=== PATIENT | female | born 1995 | race American Indian/Alaskan Native ===

== ENCOUNTER 2017-05-09 10:21 | Emergency (ER) | payer OTHER ==
--- NOTE | 2017-05-09 11:05 | Emergency Department Report ---
Chief Complaint: Abdominal Pain Stated Complaint: PELVIC PAIN Time Seen by Provider: 05/09/17 10:57 - HPI History of Present Illness: 21-year-old denies nausea vomiting here for evaluation of lower abdominal pain intermittent cramping question of dysuria. Not sure if she is having a little bit of vaginal spotting versus blood in the urine no missed periods last menstrual period 2 weeks ago. No fever crampy intermittent lower abdominal pain. - ROS Review of Systems: Review of systems otherwise negative - Exam Vital Signs: Vital Signs 05/09/17 10:49 Temperature 98.2 F Pulse Rate 58 L Respiratory 18 Rate Blood Pressure 120/82 O2 Sat by Pulse 100 Oximetry Physical Exam: Vital signs stable afebrile alert and oriented 3 nontoxic. Abdomen soft question of mild lower abdominal tenderness without rebound or guarding no mass. MSE screening note: Focused history and physical exam performed. Due to findings the following was ordered: Laboratory studies ordered patient transferred to the main ED for further evaluation. ED Disposition for MSE Condition: Stable Instructions: Abdominal Pain (ED)
[2017-05-09 11:15] LABS: Bilirubin,Urine NEG (Negative); Blood,Urine NEG (Negative); Ketones,Urine NEG (Negative); Leukocyte Esterase,Urine SM (Negative); Mucus,Urine FEW /HPF; Nitrite,Urine NEG (Negative); Protein,Urine <15 mg/dL mg/dL (Negative)
[2017-05-09 11:29] LABS: Basophils % (Auto) 0.4 % (0.0-1.8); Eosinophils % (Auto) 0.8 % (0.0-4.3); Hematocrit 36.5 % (30.3-42.9); Hemoglobin 11.5 gm/dl (10.1-14.3); Mean Corpuscular HGB Conc 32 % (30-34); Mean Corpuscular Hemoglobin 27 pg (28-32); Mean Corpuscular Volume 86 fl (79-97); Platelet Count 254 K/mm3 (140-440); Red Blood Count 4.27 M/mm3 (3.65-5.03); Red Cell Distribution Width 16.5 % (13.2-15.2); White Blood Count 6.4 K/mm3 (4.5-11.0)
[2017-05-09 11:52] LABS: Alanine Aminotransferase 7 units/L (7-56); Albumin/Globulin Ratio 1.4 %; Alkaline Phosphatase 47 units/L (35-129); Anion Gap 17 mmol/L; BUN/Creatinine Ratio 13; Blood Urea Nitrogen 9 mg/dL (7-17); Calcium 8.9 mg/dL (8.4-10.2); Carbon Dioxide 25 mmol/L (22-30); Chloride 102.3 mmol/L (98-107); Glucose 78 mg/dL (65-100); Lipase 18 units/L (13-60); Potassium 4.1 mmol/L (3.6-5.0); Sodium 140 mmol/L (137-145); Total Protein 6.9 g/dL (6.3-8.2)
[2017-05-09 11:58] LABS: Bilirubin,Direct < 0.2 mg/dL (0-0.2)
[2017-05-09] MEDS ORDERED: MOTRIN PO ONE (13:19)
[2017-05-09] MEDS ORDERED: LEVAQUIN PO ONE (13:19)
--- NOTE | 2017-05-09 13:19 | Emergency Department Report ---
ED General Adult HPI - General Chief complaint: Abdominal Pain Stated complaint: PELVIC PAIN Time Seen by Provider: 05/09/17 10:57 Source: patient Mode of arrival: Ambulatory Limitations: No Limitations - History of Present Illness Initial comments: Patient complains of dysuria and frequent urination. She's had some suprapubic discomfort but it is mild. She does not report vaginal bleeding or discharge. She denies fever chills nausea vomiting or back pain. -: days(s) Location: abdomen Radiation: non-radiation Severity scale (0 -10): 2 Quality: aching Consistency: now resolved Improves with: none Worsens with: none Associated Symptoms: denies other symptoms - Related Data Previous Rx's Medication Instructions Recorded Last Taken Type HYDROcodone/APAP 5-325 [[place] 1 each PO Q6HR PRN #20 tablet 02/28/15 Unknown Rx 5-325 mg TAB] Ibuprofen [Motrin 800 MG tab] 800 mg PO Q8HR PRN #30 tablet 02/28/15 Unknown Rx Albuterol Sulfate [Ventolin HFA] 2 puff IH Q4H PRN #1 hfa.aer.ad 08/01/15 Unknown Rx Loratadine [Claritin] 10 mg PO DAILY #30 tablet 08/01/15 Unknown Rx Tobramycin 0.3% [Tobrex] 1 drop OTIC Q8HR #1 bottle 11/12/15 11/15/15 07:00 Rx 1 drop Ibuprofen [Motrin] 600 mg PO Q8H PRN #15 tablet 03/18/16 Unknown Rx Oxymetazoline 0.05% [Afrin] 2 spray NS BID PRN #1 bottle 03/18/16 Unknown Rx Naproxen [Naprosyn] 375 mg PO BID PRN #10 tablet 05/09/17 Unknown Rx Nitrofurantoin Monohyd/M-Cryst 100 mg PO BID #14 capsule 05/09/17 Unknown Rx [Macrobid 100 mg Capsule] Allergies Allergy/AdvReac Type Severity Reaction Status Date / Time No Known Allergies Allergy Verified 05/09/17 10:48 ED Review of Systems ROS: Stated complaint: PELVIC PAIN Other details as noted in HPI Constitutional: denies: chills, fever Eyes: denies: eye pain, eye discharge, vision change ENT: denies: ear pain, throat pain Respiratory: denies: cough, shortness of breath, wheezing Cardiovascular: denies: chest pain, palpitations Endocrine: no symptoms reported Gastrointestinal: as per HPI, abdominal pain. denies: nausea, diarrhea Genitourinary: as per HPI, urgency, dysuria, frequency. 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 ANEMIA - Social History Smoking Status: Current Every Day Smoker Substance Use Type: Alcohol - Medications Home Medications: Home Medications Medication Instructions Recorded Confirmed Last Taken Type HYDROcodone/APAP 5-325 [[place] 1 each PO Q6HR PRN #20 tablet 02/28/15 12/17/15 Unknown Rx 5-325 mg TAB] Ibuprofen [Motrin 800 MG tab] 800 mg PO Q8HR PRN #30 tablet 02/28/15 12/17/15 Unknown Rx Albuterol Sulfate [Ventolin HFA] 2 puff IH Q4H PRN #1 hfa.aer.ad 08/01/15 Unknown Rx Loratadine [Claritin] 10 mg PO DAILY #30 tablet 08/01/15 12/17/15 Unknown Rx Tobramycin 0.3% [Tobrex] 1 drop OTIC Q8HR #1 bottle 11/12/15 12/17/15 11/15/15 07:00 Rx 1 drop Ibuprofen [Motrin] 600 mg PO Q8H PRN #15 tablet 03/18/16 Unknown Rx Oxymetazoline 0.05% [Afrin] 2 spray NS BID PRN #1 bottle 03/18/16 Unknown Rx Naproxen [Naprosyn] 375 mg PO BID PRN #10 tablet 05/09/17 Unknown Rx Nitrofurantoin Monohyd/M-Cryst 100 mg PO BID #14 capsule 05/09/17 Unknown Rx [Macrobid 100 mg Capsule] ED Physical Exam - General Limitations: No Limitations General appearance: alert, in no apparent distress, obese - Head Head exam: Present: atraumatic, normocephalic - Eye Eye exam: Present: normal appearance. Absent: scleral icterus - ENT ENT exam: Present: normal exam, mucous membranes moist - Neck Neck exam: Present: normal inspection - Respiratory Respiratory exam: Present: normal lung sounds bilaterally. Absent: respiratory distress - Cardiovascular Cardiovascular Exam: Present: regular rate, normal rhythm. Absent: systolic murmur, diastolic murmur, rubs, gallop - GI/Abdominal GI/Abdominal exam: Present: soft, normal bowel sounds. Absent: distended, tenderness, guarding, rebound, rigid - Extremities Exam Extremities exam: Present: normal inspection - Back Exam Back exam: Present: normal inspection. Absent: CVA tenderness (R), CVA tenderness (L) - Neurological Exam Neurological exam: Present: alert, oriented X3, CN II-XII intact. Absent: motor sensory deficit - Psychiatric Psychiatric exam: Present: normal affect, normal mood - Skin Skin exam: Present: warm, dry, intact, normal color. Absent: rash ED Course Vital Signs 05/09/17 05/09/17 05/09/17 10:49 11:42 11:46 Temperature 98.2 F 98.2 F Pulse Rate 58 L 62 Respiratory 18 14 14 Rate Blood Pressure 120/82 Blood Pressure 113/60 [Right] O2 Sat by Pulse 100 99 99 Oximetry ED Medical Decision Making - Lab Data Result diagrams: 05/09/17 11:16 05/09/17 11:16 Laboratory Results - last 24 hr 05/09/17 05/09/17 05/09/17 11:16 11:16 Unknown WBC 6.4 RBC 4.27 Hgb 11.5 Hct 36.5 MCV 86 MCH 27 L MCHC 32 RDW 16.5 H Plt Count 254 Lymph % (Auto) 26.6 [place] % (Auto) 4.9 Eos % (Auto) 0.8 Baso % (Auto) 0.4 Lymph # 1.7 [place] # 0.3 Eos # 0.1 Baso # 0.0 Seg Neutrophils % 67.3 Seg Neutrophils # 4.3 Sodium 140 Potassium 4.1 Chloride 102.3 Carbon Dioxide 25 Anion Gap 17 BUN 9 Creatinine 0.7 Estimated GFR > 60 BUN/Creatinine Ratio 13 Glucose 78 Calcium 8.9 Total Bilirubin 0.50 Direct Bilirubin < 0.2 AST 13 ALT 7 Alkaline Phosphatase 47 Total Protein 6.9 Albumin 4.0 Albumin/Globulin Ratio 1.4 Lipase 18 Urine Color Yellow Urine Turbidity Clear Urine pH 7.0 Ur Specific [place] 1.023 Urine Protein <15 mg/dl Urine Glucose (UA) Neg Urine Ketones Neg Urine Blood Neg Urine Nitrite Neg Urine Bilirubin Neg Urine Urobilinogen 2.0 Ur Leukocyte Esterase Sm Urine WBC (Auto) 22.0 H Urine RBC (Auto) 10.0 U Epithel Cells (Auto) 2.0 Urine Mucus Few Urine HCG, Qual Negative Critical care attestation.: If time is entered above; I have spent that time in minutes in the direct care of this critically ill patient, excluding procedure time. ED Disposition Clinical Impression: Acute cystitis Qualifiers: Hematuria presence: with hematuria Qualified Code(s): N30.01 - Acute cystitis with hematuria Disposition: TO HOME OR SELFCARE Is pt being admited?: No Does the pt Need Aspirin: No Condition: Stable Instructions: Abdominal Pain (ED), Urinary Tract Infection in Women (ED) Additional Instructions: Follow-up urine culture in 2-3 days at the [facility]. Rx as directed. Return as needed Prescriptions: Naproxen [Naprosyn] 375 mg PO BID PRN #10 tablet PRN Reason: Pain Nitrofurantoin Monohyd/M-Cryst [Macrobid 100 mg Capsule] 100 mg PO BID #14 capsule Referrals: RONNA IBRAHIM MD [Primary Care Provider] - 3-5 Days [facility] [Provider Group] - 3-5 Days Time of Disposition: 13:19
[2017-05-09 13:52] VITALS: BP 113/60
== END 2017-05-09 13:50 | disposition home or self-care (01) ==
LOC: ED 10:21
DX: N30.01 Acute cystitis with hematuria (principal); J45.909 Unspecified asthma, uncomplicated; F17.200 Nicotine dependence, unspecified, uncomplicated; D64.9 Anemia, unspecified
CPT/HCPCS: 36415; 80048; 80074; 81001; 81025; 83690; 85025; 99283

== ENCOUNTER 2019-07-24 08:54 | Emergency (ER) | payer MEDICAID ==
[2019-07-24 09:13] VITALS: BP 137/82
[2019-07-24 13:28] LABS: Hematocrit 35.3 % (30.3-42.9); Hemoglobin 11.4 gm/dl (10.1-14.3); Mean Corpuscular HGB Conc 32 % (30-34); Mean Corpuscular Volume 85 fl (79-97); Platelet Count 314 K/mm3 (140-440); Red Blood Count 4.14 M/mm3 (3.65-5.03); Red Cell Distribution Width 15.2 % (13.2-15.2)
--- NOTE | 2019-07-24 15:31 | Ultrasound Report ---
FIRSTTRIMESTER OBSTETRIC ULTRASOUND ULTRASOUND OB TRANSVAGINAL HISTORY: and pelvic pain COMPARISON: None. TECHNIQUE: Routine transabdominal and transvaginal OB ultrasound performed. FINDINGS: Uterus: Mildly enlarged measuring 9.9 x 5.5 x 7.4 cm. Gestational Sac: Well-defined oval shape and intrauterine in location. Yolk Sac: Normal in appearance. Fetus/Embryo: [place]-rump length of 0.2 cm, corresponding to an estimated gestational age of 5 weeks 5 days. Embryonic/ anatomy is too small for evaluation. Embryonic/ cardiac activity: 98bpm Placenta: Too small for evaluation. Amniotic fluid volume: Subjectively appropriate for gestational age. Ovaries: The right ovary is normal in size and appearance with normal blood flow, measuring 3.8 x 2. 6 x 3.9 cm. The left ovary is normal in size and appearance with normal blood flow, measuring 2.0 x 3.0 x 2.4 cm. Hypoechoic space-occupying mass in the right ovary with peripheral vascularity is most likely the corpus luteum. Additional findings: None. IMPRESSION Early live intrauterine . Signer Name: Drew Quezada Jr, MD Signed: 07/24/2019 3:26 PM Workstation Name: [id number]
--- NOTE | 2019-07-24 16:21 | Emergency Department Report ---
ED Female HPI - General Chief complaint: Abdominal Pain Stated complaint: ABD PAIN, CRAMPING Time Seen by Provider: 07/24/19 12:00 Source: patient Mode of arrival: Ambulatory Limitations: No Limitations - History of Present Illness Complaint: pelvic pain (23-year-old obese Afro-Tristanian female reports emergency department complaining of discovering she is 5 months and having painful cramps across the lower lower lower abdomen with no associated vaginal discharge or vaginal bleeding or urinary frequency. She reports having some flank pain as well answered and she denies trauma. There is no chest pain or palpitation no nausea or vomiting. She denies trauma) Location: suprapubic Severity: moderate Quality: dull Consistency: constant Are you Now?: Yes Associated Symptoms: abdominal pain. denies: vaginal discharge, vaginal bleeding, loss of appetite, dysuria, hematuria, shortness of breath, syncope - Related Data Previous Rx's Medication Instructions Recorded Last Taken Type HYDROcodone/APAP 5-325 [[place] 1 each PO Q6HR PRN #20 tablet 02/28/15 Unknown Rx 5-325 mg TAB] Ibuprofen [Motrin 800 MG tab] 800 mg PO Q8HR PRN #30 tablet 02/28/15 Unknown Rx Albuterol Sulfate [Ventolin HFA] 2 puff IH Q4H PRN #1 hfa.aer.ad 08/01/15 Unknown Rx Loratadine (Nf) [Claritin] 10 mg PO DAILY #30 tablet 08/01/15 Unknown Rx Tobramycin 0.3% [Tobrex] 1 drop OTIC Q8HR #1 bottle 11/12/15 11/15/15 07:00 Rx 1 drop Ibuprofen [Motrin] 600 mg PO Q8H PRN #15 tablet 03/18/16 Unknown Rx Oxymetazoline 0.05% [Afrin] 2 spray NS BID PRN #1 bottle 03/18/16 Unknown Rx Naproxen [Naprosyn] 375 mg PO BID PRN #10 tablet 05/09/17 Unknown Rx Nitrofurantoin Monohyd/M-Cryst 100 mg PO BID #14 capsule 05/09/17 Unknown Rx [Macrobid 100 mg Capsule] Allergies Allergy/AdvReac Type Severity Reaction Status Date / Time No Known Allergies Allergy Verified 05/09/17 10:48 ED Review of Systems ROS: Stated complaint: ABD PAIN, CRAMPING Other details as noted in HPI ED Past Medical Hx - Past Medical History Previous Medical History?: Yes Hx Hypertension: No Hx Heart Attack/AMI: No Hx Congestive Heart Failure: No Hx Diabetes: No Hx Deep Vein Thrombosis: No Hx Renal Disease: No Hx Sickle Cell Disease: No Hx Seizures: No Hx Asthma: Yes (last attack 09/28) Hx COPD: No Hx HIV: No Additional medical history: 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 ANEMIA - Surgical History Past Surgical History?: Yes - Social History Smoking Status: Current Every Day Smoker Substance Use Type: Alcohol - Medications Home Medications: Home Medications Medication Instructions Recorded Confirmed Last Taken Type HYDROcodone/APAP 5-325 [[place] 1 each PO Q6HR PRN #20 tablet 02/28/15 12/17/15 Unknown Rx 5-325 mg TAB] Ibuprofen [Motrin 800 MG tab] 800 mg PO Q8HR PRN #30 tablet 02/28/15 12/17/15 Unknown Rx Albuterol Sulfate [Ventolin HFA] 2 puff IH Q4H PRN #1 hfa.aer.ad 08/01/15 12/17/15 Unknown Rx Loratadine (Nf) [Claritin] 10 mg PO DAILY #30 tablet 08/01/15 12/17/15 Unknown Rx Tobramycin 0.3% [Tobrex] 1 drop OTIC Q8HR #1 bottle 11/12/15 12/17/15 11/15/15 07:00 Rx 1 drop Ibuprofen [Motrin] 600 mg PO Q8H PRN #15 tablet 03/18/16 Unknown Rx Oxymetazoline 0.05% [Afrin] 2 spray NS BID PRN #1 bottle 03/18/16 Unknown Rx Naproxen [Naprosyn] 375 mg PO BID PRN #10 tablet 05/09/17 Unknown Rx Nitrofurantoin Monohyd/M-Cryst 100 mg PO BID #14 capsule 05/09/17 Unknown Rx [Macrobid 100 mg Capsule] ED Physical Exam - General Limitations: No Limitations ED Course Vital Signs 07/24/19 09:11 Temperature 98.8 F Pulse Rate 98 H Respiratory 18 Rate Blood Pressure 137/82 O2 Sat by Pulse 100 Oximetry ED Medical Decision Making - Lab Data Result diagrams: 07/24/19 12:44 Critical care attestation.: If time is entered above; I have spent that time in minutes in the direct care of this critically ill patient, excluding procedure time. ED Disposition Disposition: DC-01 TO HOME OR SELFCARE Condition: Stable Instructions: Abdominal Pain (ED) Additional Instructions: The ultrasound shows a normal early intrauterine . Please be sure to follow-up with your [facility] for reevaluation your your prepregnancy and utilize Tylenol and fluids as needed for pain be sure that you are taking your vitamins as well. Referrals: [facility] [Provider Group] - 3-5 Days
== END 2019-07-24 16:15 | disposition home or self-care (01) ==
LOC: ED 08:54
DX: O26.892 Other specified pregnancy related conditions, second trimester (principal); R25.2 Cramp and spasm; R10.2 Pelvic and perineal pain; J45.909 Unspecified asthma, uncomplicated; D64.9 Anemia, unspecified; F17.200 Nicotine dependence, unspecified, uncomplicated; Z79.899 Other long term (current) drug therapy; Z98.890 Other specified postprocedural states; Z3A.20 20 weeks gestation of pregnancy
CPT/HCPCS: 36415; 76801; 76817; 84702; 85027

== ENCOUNTER 2020-01-26 17:47 | Outpatient (CLI) | payer MEDICAID ==
[2020-01-26] MEDS ORDERED: ACETAMINOPHEN 500 MG TAB PO STA (18:56)
[2020-01-26 19:35] LABS: Bacteria,Urine 1+ /HPF (Negative); Bilirubin,Urine NEG (Negative); Blood,Urine NEG (Negative); Color,Urine Yellow (Yellow); Mucus,Urine 3+ /HPF
[2020-01-26] MEDS ORDERED: LACTATED RINGERS 500 ML IV ONE (19:52)
[2020-01-26 19:58] VITALS: BP 89/50
== END 2020-01-26 20:10 | disposition home or self-care (01) ==
LOC: TRG 17:47 → APU 17:48 → TRG 20:10
PROVIDERS: ATTEND Obstetrics & Gynecology
DX: O26.893 Other specified pregnancy related conditions, third trimester (principal); R51 Headache; Z3A.32 32 weeks gestation of pregnancy
CPT/HCPCS: 59025; 81001

== ENCOUNTER 2020-03-12 08:27 | Inpatient (IN) | payer MEDICAID ==
[2020-03-12] MEDS ORDERED: OXYTOCIN DRIP 30 UNITS/500 ML BAG IV SCH (11:00)
[2020-03-12] MEDS ORDERED: DINOPROSTONE 10 MG VAG SUPP VG SCH (11:00)
[2020-03-12] MEDS ORDERED: AMPICILLIN/NS 2 GM/100 ML 2 GM/100 ML BAG IV SCH (11:00)
[2020-03-12] MEDS: LACTATED RINGERS 1,000 ML IV SCH ×3 (11:12→18:50)
--- NOTE | 2020-03-12 11:21 | History and Physical Report ---
History of Present Illness Date of examination: 03/12/20 Date of admission: 03/12/20 08:27 Chief complaint: Presents for a scheduled induction of labor due to morbid maternal obesity. History of present illness: Late entry to care at 15 1/7 Weeks, co-managed with [facility], course complicated by Anemia, Vitamin D Deficiency, a UTI, and Asthma. Past History Past Medical History: asthma Past Surgical History: no surgical history [facility] [employer] History: abnormal PAP smear, chlamydia, gonorrhea Family/Genetic History: hypertension (Parents) Social history: no significant social history, single, lives with family - Obstetrical History Expected Date of Delivery: 03/19/20 Actual Gestation: 39 Week(s) 0 Day(s) : 3 Para: 2 Number of Living Children: 2 #1 Infant Gender: Male year: ,[birth year] Birthweight: 3.175 kg Method of Delivery: Vaginal Gestational age at delivery: 40 Complications: none #2 Infant Gender: Male year: ,[birth year] Birthweight: 3.827 kg Method of Delivery: Vaginal Gestational age at delivery: 40 Medications and Allergies Allergies Allergy/AdvReac Type Severity Reaction Status Date / Time No Known Allergies Allergy Verified 05/09/17 10:48 Home Medications Medication Instructions Recorded Confirmed Last Taken Type HYDROcodone/APAP 5-325 [[place] 1 each PO Q6HR PRN #20 tablet 02/28/15 12/17/15 Unknown Rx 5-325 mg TAB] Ibuprofen [Motrin 800 MG tab] 800 mg PO Q8HR PRN #30 tablet 02/28/15 12/17/15 Unknown Rx Albuterol Sulfate [Ventolin HFA] 2 puff IH Q4H PRN #1 hfa.aer.ad 08/01/15 12/17/15 Unknown Rx Loratadine (Nf) [Claritin] 10 mg PO DAILY #30 tablet 08/01/15 12/17/15 Unknown Rx Tobramycin 0.3% [Tobrex] 1 drop OTIC Q8HR #1 bottle 11/12/15 12/17/15 11/15/15 07:00 Rx 1 drop Ibuprofen [Motrin] 600 mg PO Q8H PRN #15 tablet 03/18/16 Unknown Rx Oxymetazoline 0.05% [Afrin] 2 spray NS BID PRN #1 bottle 03/18/16 Unknown Rx Naproxen [Naprosyn] 375 mg PO BID PRN #10 tablet 05/09/17 Unknown Rx Nitrofurantoin Monohyd/M-Cryst 100 mg PO BID #14 capsule 05/09/17 Unknown Rx [Macrobid 100 mg Capsule] Active Meds: Active Medications Acetaminophen (Tylenol) 650 mg PO Q4H PRN PRN Reason: Pain, Mild (1-3) Butorphanol Tartrate (Stadol) 2 mg IV Q2H PRN PRN Reason: Pain , Severe (7-10) Dinoprostone (Cervidil) 10 mg VG ONCE BETO Stop: 03/12/20 15:00 Ephedrine Sulfate (Ephedrine Sulfate) 10 mg IV Q2M PRN PRN Reason: Hypotension Oxytocin/Sodium Chloride (Pitocin/Ns 30 Unit/500ml) 30 units in 500 mls @ 2 mls/hr IV TITR BETO; Protocol Lactated Ringer's (Lactated Ringers) 1,000 mls @ 125 mls/hr IV DIRECT BETO Last Admin: 03/12/20 11:12 Dose: 125 mls/hr Documented by: Oxytocin/Sodium Chloride (Pitocin/Ns 30 Unit/500ml) 30 units in 500 mls @ 40 mls/hr IV TITR BETO; Protocol Ampicillin Sodium (Ampicillin/Ns 2 Gm/100 Ml) 2 gm in 100 mls @ 100 mls/hr IV ONCE BETO; Protocol Stop: 03/12/20 14:00 Ampicillin Sodium (Ampicillin/Ns 1 Gm/50 Ml) 1 gm in 50 mls @ 100 mls/hr IV Q4H BETO; Protocol Lidocaine (Xylocaine 2%) 20 ml INFILTRATI ONCE BETO Stop: 03/13/20 11:29 Mineral Oil (Mineral Oil) 30 ml PO QHS PRN PRN Reason: Constipation Misoprostol (Cytotec) 1,000 mcg MI ONCE PRN PRN Reason: Uterine Bleeding Oxytocin (Pitocin) 10 unit IM ONCE PRN PRN Reason: Uterine Bleeding Terbutaline Sulfate (Brethine) 0.25 mg SUB-Q ONCE PRN PRN Reason: Hyperstimulation/Hypertonicity Review of Systems All systems: negative - Vital Signs Vital signs: Vital Signs Temp Pulse 98.2 F 87 03/12/20 10:05 03/12/20 10:05 Temp Pulse Resp BP Pulse Ox 98.2 F 87 03/12/20 10:05 03/12/20 10:05 - Physical Exam Breasts: Positive: normal Cardiovascular: Regular rate Lungs: Positive: Clear to auscultation, Normal air movement Abdomen: Positive: normal appearance, soft, normal bowel sounds Genitourinary (Female): Positive: normal external genitalia, normal perenium Vagina: Positive: normal moisture Uterus: Positive: enlarged Anus/Rectum: Positive: normal perianal skin Extremities: Positive: normal - Obstetrical FHR: category 1 Uterine Contraction Monitor Mode: External Cervical Dilatation: 1 Cervical Effacement Percentage: 20 station: -4 Uterine Contraction Pattern: Irregular Uterine Tone Measurement Phase: Resting Uterine Contraction Intensity: Moderate Results All other labs normal. Assessment and Plan A: IUP @ 39 Weeks Category I Tracing Morbid Maternal Obesity GBS Negative P: Admit to L&D Per Routine Orders PIH Labs Cook's Cervical Ripening Balloon Placed Low-Dose Pitocin Induction GBS Prophylaxis
[2020-03-12] MEDS: OXYTOCIN DRIP 30 UNITS/500 ML BAG IV SCH (11:27)
[2020-03-12] MEDS ORDERED: ePHEDrine SULFATE 50 MG/1 ML INJ IV PRN (11:30)
[2020-03-12] MEDS ORDERED: OXYTOCIN 10 UNIT/1 ML INJ IM PRN (11:30)
[2020-03-12] MEDS ORDERED: LIDOCAINE (2%) 20 MG/1 ML VIAL 20 ML MDV INFILTRATI SCH (11:30)
[2020-03-12] MEDS ORDERED: miSOPROStol 200 MCG TAB PR PRN (11:30)
[2020-03-12] MEDS ORDERED: TERBUTALINE 1 MG/1 ML INJ SUB-Q PRN (11:30)
[2020-03-12] MEDS: ACETAMINOPHEN 325 MG TAB PO PRN (14:01)
[2020-03-12 14:07] LABS: Hematocrit 31.5 % (30.3-42.9); Hemoglobin 10.3 gm/dl (10.1-14.3); Mean Corpuscular HGB Conc 33 % (30-34); Mean Corpuscular Volume 83 fl (79-97); Platelet Count 282 K/mm3 (140-440); Red Blood Count 3.81 M/mm3 (3.65-5.03); Red Cell Distribution Width 16.4 % (13.2-15.2)
[2020-03-12 14:35] LABS: Alanine Aminotransferase 6 units/L (7-56)
[2020-03-12] MEDS: BUTORPHANOL 2 MG/1 ML INJ IV PRN (14:37)
[2020-03-12] MEDS ORDERED: AMPICILLIN/NS 2 GM/100 ML 2 GM/100 ML BAG IV ONE (15:08)
[2020-03-12] MEDS: AMPICILLIN/NS 1 GM/50 ML 1 GM/50 ML BAG IV SCH (19:48)
[2020-03-12] MEDS ORDERED: MINERAL OIL 30 ML ORAL LIQD PO PRN (22:00)
[2020-03-13] MEDS ORDERED: diphenhydrAMINE 50 MG/ML VIAL IV PRN (00:22)
[2020-03-13] MEDS ORDERED: ONDANSETRON 4 MG/2 ML INJ IV PRN (00:22)
[2020-03-13] MEDS ORDERED: NALOXONE 2 MG/2 ML INJ IV PRN (00:22)
[2020-03-13] MEDS ORDERED: NalbUPHINE 10 MG/1 ML INJ IV PRN (00:22)
--- NOTE | 2020-03-13 00:58 | Anesthesia Consultation ---
Anesthesia Consult and Med Hx Date of service: 03/13/20 - Airway Anesthetic Teeth Evaluation: Good ROM Head & Neck: Adequate Mental/Hyoid Distance: Adequate Mallampati Class: Class IV Intubation Access Assessment: Possibly Difficult - Pulmonary Exam CTA: Yes - Cardiac Exam Cardiac Exam: RRR - Pre-Operative Health Status ASA Pre-Surgery Classification: ASA3 Proposed Anesthetic Plan: Epidural - Pulmonary Hx Smoking: No Hx Asthma: Yes (over 9 months) COPD: No Hx Pneumonia: No Hx Sleep Apnea: No - Cardiovascular System Hx Hypertension: No Hx Coronary Artery Disease: No Hx Heart Attack/AMI: No Hx Angina: No Hx Cardia Arrhythmia: No Hx Heart Murmur: No - Central Nervous System Hx Seizures: No Hx Psychiatric Problems: No - Gastrointestinal Hx Gastroesophageal Reflux Disease: No - Endocrine Hx Renal Disease: No Hx End Stage Renal Disease: No Hx Insulin Dependent Diabetes: No Hx Non-Insulin Dependent Diabetes: No Hx Hypothyroidism: No Hx Hyperthyroidism: No - Hematic Hx Anemia: No Hx Sickle Cell Disease: No - Other Systems Hx Alcohol Use: No Hx Obesity: Yes
[2020-03-13] MEDS ORDERED: fentaNYL-BUPIV 2 MCG/ML-0.125% 200 MCG/100 ML BAG EPIDURAL SCH (01:00)
--- NOTE | 2020-03-13 01:02 | Progress Note ---
Labor Epidural - Labor Epidural Start Time: 00:40 Stop Time: 00:55 Performed by:: UMER DAVILA Procedure: Patient is requesting a laboring epidural for laboring pain. Patient IDed, H&P reviewed, all questions and concerns were answered, and consent was signed. Timeout was performed at bedside. Patient in sitting position. Sterile prep and drape was performed. 3ml of 1% lidocaine skin wheal at L[2]- L[3]. 18- gauge Touhy epidural needle was advanced, pt c/o discomfort during advancement of needle in her back. She was counseled that some discomfort was normal and that an epidural would be the safest choice for her d/t her size. She refused to continue with the procedure after discussion, so procedure was aborted.
[2020-03-13] MEDS: AMPICILLIN/NS 1 GM/50 ML 1 GM/50 ML BAG IV SCH ×2 (04:22→08:23)
[2020-03-13] MEDS: BUTORPHANOL 2 MG/1 ML INJ IV PRN (05:37)
[2020-03-13] MEDS: miSOPROStol 25 MCG TAB PO PRN ×2 (16:41→20:49)
[2020-03-13] MEDS: ACETAMINOPHEN 325 MG TAB PO PRN (20:48)
[2020-03-14] MEDS: miSOPROStol 25 MCG TAB PO PRN ×2 (01:14→19:13)
[2020-03-14] MEDS: OXYTOCIN DRIP 30 UNITS/500 ML BAG IV SCH (08:27)
--- NOTE | 2020-03-14 09:33 | Progress Note ---
Assessment and Plan - Patient Problems (1) Encounter for induction of labor Current Visit: Yes Status: Acute Plan to address problem: Continue Pitocin titration AROM when baby is engaged in pelvis Internals after AROM if possible Pain meds as desired per orders Anticipate (2) Morbid obesity Current Visit: Yes Status: Acute (3) Positive GBS test Current Visit: Yes Status: Acute Plan to address problem: Initiate GBS prophylaxis when in labor Subjective - Subjective Date of service: 03/14/20 Principal diagnosis: IOL; morbid obesity Interval history: See admission H & P Patient reports: movement normal, contractions ("they're irregular, not that strong"), no new complaints, no loss of fluid, no vaginal bleeding Objective - Vital Signs Vital Signs: Vital Signs - 12hr 03/14/20 07:40 Temperature 97.7 F Pulse Rate 78 Respiratory 18 Rate Blood Pressure 131/78 [Left] O2 Sat by Pulse 98 Oximetry - Exam Breasts: deferred Cardiovascular: Regular rate Lungs: Normal air movement FHR: category 1 Uterine Contraction Monitor Mode: External Cervical Dilatation: 2.5 (vertex, ballotable) Cervical Effacement Percentage: 60 station: -3 Uterine Contraction Frequency (min): 2-5 Uterine Contraction Pattern: Irregular Uterine Tone Measurement Phase: Resting Uterine Contraction Intensity: Mild - Labs Labs: Abnormal Labs 03/12/20 03/12/20 10:10 10:10 MCH 27 L RDW 16.4 H ALT 6 L Lactate Dehydrogenase 247 H
--- NOTE | 2020-03-14 10:04 | Progress Note ---
Subjective - Subjective Date of service: 03/14/20 Principal diagnosis: IOL Interval history: AROM clear IUPC/FSE placed with no complications cervix 3-4cm/80%/-3 Maternal/ well being reassuring overall J Luis Christie MD Patient reports: movement normal, contractions ("they're irregular, not that strong"), no new complaints, no loss of fluid, no vaginal bleeding Objective - Vital Signs Vital Signs: Vital Signs - 12hr 03/14/20 07:40 Temperature 97.7 F Pulse Rate 78 Respiratory 18 Rate Blood Pressure 131/78 [Left] O2 Sat by Pulse 98 Oximetry - Labs Labs: Abnormal Labs 03/12/20 03/12/20 10:10 10:10 MCH 27 L RDW 16.4 H ALT 6 L Lactate Dehydrogenase 247 H
[2020-03-14] MEDS: BUTORPHANOL 2 MG/1 ML INJ IV PRN ×3 (10:27→17:48)
[2020-03-14] MEDS: AMPICILLIN/NS 1 GM/50 ML 1 GM/50 ML BAG IV SCH ×4 (10:34→23:15)
[2020-03-14] MEDS: LACTATED RINGERS 1,000 ML IV SCH (14:28)
[2020-03-15] MEDS: miSOPROStol 25 MCG TAB PO PRN (00:15)
[2020-03-15] MEDS: LACTATED RINGERS 1,000 ML IV SCH (00:16)
[2020-03-15] MEDS ORDERED: D5W/LACTATED RINGERS 1,000 ML IV SCH (03:00)
--- NOTE | 2020-03-15 03:02 | Event Note ---
Date: 03/15/20 Variable FHR decelerations and late FHR decelerations noted. Normal baseline FHR. Minimal to moderate variability. SVE: no cervical change. White vaginal discharge noted. Contractions irregular and infrequent. Patient positioned in lateral position and oxygen applied per face mask. Consulted with Dr. Christie re: patient at 02:45 and informed her of FHR tracing and vaginal discharge noted and no cervical change. Dr. Christie ordered D5LR IV fluid bolus; orders put in. Patient has been receiving Ampicillin every 4 hours.
[2020-03-15] MEDS ORDERED: GENTAMICIN 100 MG in SODIUM CHLORIDE 0.9% 100 ML IV SCH (03:15)
[2020-03-15] MEDS ORDERED: LACTATED RINGERS 1,000 ML ONE ×2 (03:59→05:59)
[2020-03-15] MEDS: GENTAMICIN/NS 100 MG/100 ML 100 MG/100 ML BAG IV SCH ×2 (04:08→15:19)
--- NOTE | 2020-03-15 04:13 | Event Note ---
Date: 03/15/20 Patient has received IV fluid bolus. She is having contractions every 10-15 minutes. Variability is minimal with late and early FHR decelerations. Spoke with Dr. Christie at 04:02 re: patient and informed her re: FHR tracing. Terbutaline given. Dr. Christie states to get patient ready for a section delivery. Discussed this with patient. Orders put in. Notified team.
[2020-03-15] MEDS ORDERED: FAMOTIDINE 20 MG/2 ML INJ IV ONE (04:17)
[2020-03-15] MEDS ORDERED: BICITRA ORAL LIQD 30ML PO ONE (04:17)
[2020-03-15] MEDS ORDERED: METOCLOPRAMIDE 10 MG/2 ML INJ IV ONE (04:17)
[2020-03-15] MEDS ORDERED: DEXMEDETOMIDINE 200 MCG/2 ML VIAL IV ONE (04:28)
[2020-03-15] MEDS ORDERED: BUPIVACAINE /DEX-WATER 0.75% (2 ML) AMPULE INFILTRATI ONE (04:28)
[2020-03-15] MEDS ORDERED: ONDANSETRON 4 MG/2 ML INJ ONE (04:28)
[2020-03-15] MEDS ORDERED: ceFAZolin/Water 2 GM/20 ML 2 GM/20 ML SYRINGE IV NR (05:00)
[2020-03-15] MEDS ORDERED: LACTATED RINGERS 1,000 ML IV SCH (05:00)
[2020-03-15] MEDS ORDERED: OXYTOCIN DRIP 30 UNITS/500 ML BAG IV SCH (05:00)
[2020-03-15] MEDS ORDERED: ceFAZolin/STERILE WATER 2 GM/20 ML SYRINGE IV ONE (05:03)
[2020-03-15] MEDS ORDERED: SODIUM CHLORIDE 0.9% IRR 1,500 ML BOTTLE IR ONE (05:03)
[2020-03-15] MEDS ORDERED: WATER FOR IRRIG STERILE 1,500 ML BOTTLE IR ONE (05:03)
--- NOTE | 2020-03-15 05:03 | Event Note ---
Date: 03/15/20 no cervical change NRFHT remote from delivery plan for operative delivery informed consent obtained J Luis Christie MD
[2020-03-15 05:20] LABS: Basophils % (Auto) 0.2 % (0.0-1.8); Eosinophils # (Auto) 0.1 K/mm3 (0.0-0.4); Eosinophils % (Auto) 0.7 % (0.0-4.3); Hematocrit 30.1 % (30.3-42.9); Hemoglobin 9.9 gm/dl (10.1-14.3); Lymphocytes # (Auto) 1.1 K/mm3 (1.2-5.4); Lymphocytes % (Auto) 13.7 % (13.4-35.0); Mean Corpuscular HGB Conc 33 % (30-34); Mean Corpuscular Volume 84 fl (79-97); Monocytes # (Auto) 0.3 K/mm3 (0.0-0.8); Monocytes % (Auto) 4.2 % (0.0-7.3); Platelet Count 234 K/mm3 (140-440); Red Blood Count 3.59 M/mm3 (3.65-5.03)
[2020-03-15] MEDS ORDERED: PHENYLEPHRINE 10 MG/1 ML INJ SDV ONE (05:38)
[2020-03-15 05:46] LABS: Blood Urea Nitrogen 4 mg/dL (7-17); Calcium 8.7 mg/dL (8.4-10.2); Hemolysis Index 16
[2020-03-15 05:47] LABS: Alanine Aminotransferase < 5 units/L (7-56); BUN/Creatinine Ratio 7
[2020-03-15] MEDS ORDERED: NALOXONE 0.4 MG/1 ML INJ IV PRN ×2 (06:27→06:35)
[2020-03-15] MEDS ORDERED: HYDROcodone/ACETAMINOPHEN 5-325 MG TAB PO PRN (06:27)
[2020-03-15] MEDS ORDERED: SIMETHICONE 80 MG CHEW TAB PO PRN (06:27)
[2020-03-15] MEDS ORDERED: MORPHINE 2 MG/1 ML INJ IV PRN (06:27)
[2020-03-15] MEDS ORDERED: ONDANSETRON 4 MG/2 ML INJ IV PRN ×2 (06:27→06:35)
[2020-03-15] MEDS ORDERED: WITCH HAZEL/ GLYCERIN PAD TP PRN (06:27)
[2020-03-15] MEDS ORDERED: LANOLIN/ZINC/DIMETHICONE (LANSINOH) 7 GM TP PRN (06:27)
[2020-03-15] MEDS ORDERED: MORPHINE 4 MG/1 ML INJ IV PRN (06:27)
[2020-03-15] MEDS ORDERED: MAGNESIUM HYDROXIDE (MOM) ORAL LIQD UDC PO PRN (06:27)
--- NOTE | 2020-03-15 06:31 | Anesthesia Day of Surgery ---
Anesthesia Day of Surgery - Day of Surgery Patient Examined: Yes Patient H&P Reviewed: Yes Patient is NPO: Yes (h2o 2 hrs) Beta Blockers: Yes Cardiac Clearance: No Pulmonary Clearance: No Stuart's Test: N/A
--- NOTE | 2020-03-15 06:34 | Procedure Note ---
OB Delivery Note - Delivery Date of Delivery: 03/15/20 Surgeon: MARIE SPARROW Estimated blood loss: other (700) - Section Preop diagnosis: arrest of dilation, nonreassuring FHR tracing Postop diagnosis: same section procedure: primary low transverse Disposition: PACU Complications: none Narrative: Preop diagnosis: IUP at 39.3weeks, NRFHT arrest of dilation Postop diagnosis: Same Procedure: Primary low transverse section via Pfannenstiel incision Surgeon: Dr. Marie Sparrow Anesthesia spinal Complications none EBL 700 ml IV fluids 1300mL Urine output 500mL, clear Drains Estrada to gravity Findings: Viable female with weight 2698gms and 8/9 normal uterus tubes and ovaries bilaterally Procedure: Patient was consented in 2005, taken to the operating room where she received excellent spinal anesthesia. She was then placed in the dorsal supine position with a leftward tilt. The abdomen was prepped and draped in a sterile fashion, and a timeout was verified. Adequate anesthesia was confirmed prior to the skin incision. A Pfannenstiel skin incision was made with a scalpel taken down to the underlying structures and the fascia was incised in the midline. The incision was extended laterally with curved Turcios scissors, the superior and inferior aspects of the fascial incisions were grasped with Abi clamps and the rectus muscles dissected sharply. The abdomen was entered bluntly in the midline carried down inferiorly with good visualization of the bladder. The vesicouterine peritoneum was tented with Jamaican forceps and incised in the midline with Metzenbaum scissors and the vesicouterine peritoneum taken down sharply. Bladder blade was inserted, the uterine incision was made sharply with a scalpel. The inferior and superior aspect of the uterine incisions were extended bluntly, the baby's head was delivered atraumatically. The remainder of the delivery was atraumatic, no nuchal cord noted. The cord was clamped and cut and baby handed to waiting NICU team. An intact placenta with three-vessel cord delivered manually. The uterus was then cleared of all clots and debris and the uterus exteriorized. The uterine incision was closed with 2 layers of 0 chromic with excellent hemostasis. The abdomen was then irrigated with warm normal saline and the uterus placed back into the abdomen atraumatically. A second look at the uterine incision and ensured hemostasis. The fascia was closed with 0 Vicryl in the usual fashion. The subcuticular structures were closed with interrupted sutures of 3-0 Vicryl and the skin closed with yamile. A pressure dressing was applied. All sponge needle and instrument counts were correct x2. There were no complications. Mom and baby to recovery area. EBL 700 mL J Luis Sparrow MD
--- NOTE | 2020-03-15 06:34 | Anesthesia Consultation ---
Anesthesia Consult and Med Hx Date of service: 03/15/20 - Airway Anesthetic Teeth Evaluation: Poor ROM Head & Neck: Adequate Mental/Hyoid Distance: Adequate Mallampati Class: Class III Intubation Access Assessment: Possibly Difficult - Pulmonary Exam CTA: Yes - Cardiac Exam Cardiac Exam: RRR - Pre-Operative Health Status ASA Pre-Surgery Classification: ASA3 Proposed Anesthetic Plan: Spinal - Pulmonary Hx Smoking: No Hx Asthma: Yes (over 9 months) Hx Respiratory Symptoms: No SOB: No COPD: No Home Oxygen Therapy: No Hx Pneumonia: No Hx Sleep Apnea: No - Cardiovascular System Hx Hypertension: No Hx Coronary Artery Disease: No Hx Heart Attack/AMI: No Hx Angina: No Hx Percutaneous Transluminal Coronary Angioplasty (PTCA): No Hx Cardia Arrhythmia: No Hx Pacemaker: No Hx Internal Defibrillator: No Hx Valvular Heart Disease: No Hx Heart Murmur: No Hx Peripheral Vascular Disease: No - Central Nervous System Hx Neuromuscular Disorder: No Hx Seizures: No CVA: No Hx Back Pain: Yes (epidural attempted a couple of days ago, unable to place by Carlos Bailey CRNA) Hx Psychiatric Problems: No - Gastrointestinal Hx Ulcer: No Hx Gastroesophageal Reflux Disease: Yes - Endocrine Hx Renal Disease: No Hx End Stage Renal Disease: No Hx Cirrhosis: No Hx Liver Disease: No Hx Insulin Dependent Diabetes: No Hx Non-Insulin Dependent Diabetes: No Hx Hypothyroidism: No Hx Hyperthyroidism: No - Hematic Hx Anemia: No Hx Sickle Cell Disease: No - Other Systems Hx Alcohol Use: No Hx Substance Use: No Hx Cancer: No Hx Obesity: Yes
[2020-03-15] MEDS ORDERED: HYDROmorphone 1 MG/1 ML INJ IV PRN (06:35)
--- NOTE | 2020-03-15 06:38 | Progress Note ---
Spinal Anesthesia Block - Spinal Anesthesia Block Start Time: 05:04 Stop Time: 05:09 Performed by:: ISSA BAUMAN Procedure: Patient IDed, H&P reviewed, all questions and concerns were answered, and consent was signed. Timeout was performed at bedside. Patient in sitting position. Sterile prep and drape was performed. [3] ml of 1% lidocaine skin wheal at L[3]- L [4]. Needle introducer advanced. 25 gauge spinal needle advanced. Clear, free flowing CSF. Precedex 10mcg. negative blood, negative paresthesia. Spinal dose given. All needles removed. Patient tolerated procedure.
--- NOTE | 2020-03-15 06:40 | Post Anesthesia Evaluation ---
- Post Anesthesia Evaluation Patient Participated: Yes Airway Patent: Yes Stable Respiratory Function: Yes Nausea/Vomiting: No Temp > 96.8F: Yes Pain Manageable: Yes Adequeate Hydration: Yes Anesthesia Complications: No Block Receding Appropriately: Yes Patient on Ventilator: No
[2020-03-15] MEDS ORDERED: HYDROmorphone 1 MG/1 ML INJ IV SCH (09:00)
[2020-03-15] MEDS: HYDROcodone/ACETAMINOPHEN 5-325 MG TAB PO PRN ×2 (14:08→20:09)
[2020-03-15] MEDS: AMPICILLIN/NS 2 GM/100 ML 2 GM/100 ML BAG IV SCH ×2 (14:20→20:12)
[2020-03-15 19:04] LABS: Hematocrit 28.5 % (30.3-42.9); Hemoglobin 9.4 gm/dl (10.1-14.3)
[2020-03-16] MEDS: GENTAMICIN/NS 100 MG/100 ML 100 MG/100 ML BAG IV SCH ×3 (00:17→17:21)
[2020-03-16] MEDS: IBUPROFEN 800 MG TAB PO PRN ×2 (00:32→22:00)
[2020-03-16] MEDS: HYDROcodone/ACETAMINOPHEN 5-325 MG TAB PO PRN ×3 (02:06→17:21)
[2020-03-16] MEDS: AMPICILLIN/NS 2 GM/100 ML 2 GM/100 ML BAG IV SCH ×4 (02:33→21:41)
--- NOTE | 2020-03-16 13:57 | Progress Note ---
Assessment and Plan A: /postop day 1 S/P primary LTCS. Anemia. P: Supplement with iron. Encourage ambulation. Advance diet as tolerated. Subjective - Subjective Date of service: 03/16/20 Principal diagnosis: /postop day 1 S/P LTCS Patient reports: appetite normal, voiding normally, pain well controlled, flatus, ambulating normally, no dizzy ambulation, no nauseated : doing well Objective - Vital Signs Latest vital signs: Vital Signs Temp Pulse Resp BP BP Pulse Ox 03/16/20 12:54 139/84 03/16/20 08:21 98.1 F 92 H 18 143/75 97 03/16/20 02:06 18 03/15/20 23:47 99.4 F 99 H 20 123/77 100 03/15/20 21:20 99.7 F H 104 H 20 119/77 98 03/15/20 20:09 18 03/15/20 16:16 98.6 F 92 H 18 131/82 98 Intake and Output 03/16/20 03/16/20 03/16/20 00:59 07:59 15:59 Intake Total 240 Output Total Balance 240 Intake: IV AMPICILLIN/NS 2 GM/100 ML 2 gm In 100 ml @ 100 mls /hr IV Q6HR BETO Rx#: [id number] GENTAMICIN/NS 100 MG/100 ML 100 mg In 100 ml @ 100 mls/hr IV Q8H BETO Rx#: [id number] Oral 240 Output: Urine Indwelling Catheter Void Other: Total, Intake Amount 240 Total, Output Amount - Exam Cardiovascular: Present: Regular rate, Normal S1, Normal S2 Lungs: Present: Clear to auscultation Abdomen: Present: normal appearance, soft, normal bowel sounds. Absent: distention, tenderness, guarding, rigidity Uterus: Present: normal, firm, fundal height below umbilicus. Absent: bogginess, tenderness Extremities: Present: normal, edema (mild bilateral pedal edema). Absent: tenderness Incision: Present: normal, dry, dressed - Labs Labs: Abnormal lab results 03/15/20 Range/Units 18:05 Hgb 9.4 L (10.1-14.3) gm/dl Hct 28.5 L (30.3-42.9) %
[2020-03-16] MEDS ORDERED: SODIUM CHLORIDE 0.9% 500 ML 500 ML IV SCH (22:00)
[2020-03-17] MEDS: HYDROcodone/ACETAMINOPHEN 5-325 MG TAB PO PRN (09:41)
[2020-03-17] MEDS ORDERED: FERROUS SULFATE 325 MG TAB PO SCH (10:00)
--- NOTE | 2020-03-17 11:10 | Progress Note ---
Assessment and Plan A: Postop Day 2 Stable P: Follow routine Postop orders D/c home today per pt request. RTO in 1 week for incision check. Subjective - Subjective Date of service: 03/17/20 Principal diagnosis: /postop day 2 S/P LTCS Interval history: Late entry to care at 15 1/7 Weeks, co-managed with [facility], course complicated by Anemia, Vitamin D Deficiency, a UTI, and Asthma. Patient reports: appetite normal, voiding normally, pain well controlled, flatus, ambulating normally : doing well, bottle feeding Objective - Vital Signs Latest vital signs: Vital Signs Temp Pulse Resp BP BP Pulse Ox 03/17/20 09:08 98.1 F 83 20 123/71 03/17/20 01:12 98.2 F 94 H 20 116/69 97 03/16/20 15:51 98.2 F 98 H 18 141/85 100 03/16/20 12:54 139/84 Intake and Output 03/16/20 03/17/20 03/17/20 22:59 06:59 14:59 Intake Total 340 300 240 Balance 340 300 240 Intake: IV 100 AMPICILLIN/NS 2 GM/100 ML 100 2 gm In 100 ml @ 100 mls /hr IV Q6HR [facility] Rx#: [id number] Oral 240 240 Intake, Free Water 300 Other: Total, Intake Amount 240 240 # Voids Void 3 1 1 - Exam Breasts: Present: normal Cardiovascular: Present: Regular rate, Normal S1, Normal S2 Lungs: Present: Clear to auscultation, Normal air movement Abdomen: Present: normal appearance, soft, normal bowel sounds Uterus: Present: normal, firm, fundal height below umbilicus Extremities: Present: normal Incision: Present: normal, dry, intact
--- NOTE | 2020-03-17 11:13 | Discharge Summary ---
Providers - Providers Date of Admission: 03/12/20 08:27 Date of discharge: 03/17/20 Attending physician: MARIE SPARROW MD Primary care physician: MARIE SPARROW MD Hospitalization Reason for admission: induction of labor Delivery: Procedure: primary low transverse Incision: normal, dry, intact complications: none Discharge diagnosis: IUP at term delivered [place] baby: female Condition at discharge: Good Disposition: [id number] TO HOME OR SELFCARE Plan - Discharge Medications Prescriptions: Ibuprofen [Motrin] 600 mg PO Q8H PRN #60 tablet PRN Reason: Pain oxyCODONE /ACETAMINOPHEN [Percocet 5/325] 1 tab PO Q6HR PRN #20 tablet PRN Reason: Pain - Provider Discharge Summary Activity: routine, no sex for 6 weeks, no heavy lifting 4 weeks, no strenuous exercise Diet: routine Instructions: routine Additional instructions: [] Smoking cessation referral if applicable(refer to patient education folder for contact #) [] Refer to [facility]'s [facility] Booklet Call your doctor immediately for: * Fever > 100.5 * Heavy vaginal bleeding ( >1 pad per hour) * Severe persistent headache * Shortness of breath * Reddened, hot, painful area to leg or breast * Drainage or odor from incision. * Keep incision clean and dry at all times and follow doctor's instructions regarding bathing/showering - Follow up plan Follow up: MARIE SPARROW MD [Primary Care Provider] - 7 Days
[2020-03-17 14:26] VITALS: BP 138/97
== END 2020-03-17 15:35 | disposition home or self-care (01) | DRG 766 ==
LOC: LD 08:27 → OB 03-15 09:27
PROVIDERS: ADMIT Obstetrics & Gynecology; ATTEND Obstetrics & Gynecology
PROC: 0U7C7ZZ Dilation of Cervix, Via Natural or Artificial Opening (ICD-10-PCS; principal; 2020-03-12)
PROC: 3E033VJ Introduction of Other Hormone into Peripheral Vein, Percutaneous Approach (ICD-10-PCS; 2020-03-12)
PROC: 10H07YZ Insertion of Other Device into Products of Conception, Via Natural or Artificial Opening (ICD-10-PCS; 2020-03-14)
PROC: 10907ZC Drainage of Amniotic Fluid, Therapeutic from Products of Conception, Via Natural or Artificial Opening (ICD-10-PCS; 2020-03-14)
PROC: 10907ZC Drainage of Amniotic Fluid, Therapeutic from Products of Conception, Via Natural or Artificial Opening (ICD-10-PCS; 2020-03-14)
PROC: 10D00Z1 Extraction of Products of Conception, Low, Open Approach (ICD-10-PCS; 2020-03-15)
DX: O99.214 Obesity complicating childbirth (principal); O76 Abnormality in fetal heart rate and rhythm complicating labor and delivery; O62.1 Secondary uterine inertia; Z37.0 Single live birth; E66.01 Morbid (severe) obesity due to excess calories; Z3A.39 39 weeks gestation of pregnancy; Z82.49 Family history of ischemic heart disease and other diseases of the circulatory system; J45.909 Unspecified asthma, uncomplicated; Z20.828 Contact with and (suspected) exposure to other viral communicable diseases; O99.52 Diseases of the respiratory system complicating childbirth
CPT/HCPCS: 36415; 59025; 80053; 81001; 82565; 83615; 84450; 84460; 84550; 85014; 85018; 85025; 85027; 86850; 86900; 86901; 88307; G0378; J0290; J0595; J0690; J1170; J1580; J2370; J2405; J2590; J2765; J3490; J7040; J7120; J7121; U0003

== ENCOUNTER 2020-10-31 13:23 | Emergency (ER) | payer MEDICAID ==
[2020-10-31 14:28] VITALS: BP 135/81
--- NOTE | 2020-10-31 16:03 | Event Note ---
ED Screening Note Date of service: 10/31/20 Time: 16:02 ED Screening Note: Patient complains of nausea, vomiting, lower abdominal pain, and tactile fevers x4 days Denies urinary symptoms No recent Covid testing per patient or recent sick contacts No loss of taste/smell, chest pain, shortness of breath, or cough No hematemesis/coffee-ground emesis History of This initial assessment/diagnostic orders/clinical plan/treatment(s) is/are subject to change based on patients health status, clinical progression and re- assessment by fellow clinical providers in the ED. Further treatment and workup at subsequent clinical providers discretion. Patient/guardian urged not to elope from the ED as their condition may be serious if not clinically assessed and managed. Initial orders include: Labs
[2020-10-31 16:27] LABS: Basophils # (Auto) 0.1 K/mm3 (0.0-0.1); Basophils % (Auto) 1.3 % (0.0-1.8); Eosinophils % (Auto) 0.1 % (0.0-4.3); Hematocrit 39.8 % (30.3-42.9); Hemoglobin 12.9 gm/dl (10.1-14.3); Lymphocytes # (Auto) 0.9 K/mm3 (1.2-5.4); Mean Corpuscular HGB Conc 33 % (30-34); Mean Corpuscular Volume 80 fl (79-97); Monocytes # (Auto) 0.3 K/mm3 (0.0-0.8); Platelet Count 306 K/mm3 (140-440); Red Cell Distribution Width 16.3 % (13.2-15.2)
[2020-10-31 17:11] LABS: Alanine Aminotransferase 15 units/L (7-56); Albumin 4.3 g/dL (3.9-5); BUN/Creatinine Ratio 16; Blood Urea Nitrogen 13 mg/dL (7-17); Calcium 8.9 mg/dL (8.4-10.2); Hemolysis Index 11
[2020-10-31 17:17] LABS: Bilirubin,Urine NEG (Negative); Blood,Urine NEG (Negative); Color,Urine Amber (Yellow); Mucus,Urine FEW /HPF
--- NOTE | 2020-10-31 18:28 | Emergency Department Report ---
ED General Adult HPI - General Chief complaint: Fever Stated complaint: NAUSEA/HEADACHE/BODY ACHES Time Seen by Provider: 10/31/20 14:53 Source: patient Mode of arrival: Ambulatory Limitations: No Limitations - History of Present Illness Initial comments: 25-year-old morbid obese -[place] female presents to the emergency room complaining of nausea vomiting headache body aches since Tuesday. Patient states she last took ibuprofen was 3 AM this morning. She has not tested for Covid. She is not had any contact that she feels. She did is followed by [facility] in [place]. She has a past medical history of asthma with no flareup. She currently takes no medications on a daily basis. Her last menstrual period was last week. She reports that she has had a fever. Onset/Timin -: days(s) Quality: aching Consistency: intermittent Improves with: none Worsens with: none Associated Symptoms: fever/chills, headaches, nausea/vomiting. denies: cough, diaphoresis, loss of appetite, rash, seizure, shortness of breath, weakness Treatments Prior to Arrival: none - Related Data Previous Rx's Medication Instructions Recorded Last Taken Type Albuterol Sulfate [Ventolin HFA] 2 puff IH Q4H PRN #1 hfa.[email or web address] 08/01/15 Unknown Rx Ibuprofen [Motrin] 600 mg PO Q8H PRN #60 tablet 03/15/20 Unknown Rx oxyCODONE /ACETAMINOPHEN [Percocet 1 tab PO Q6HR PRN #20 tablet 03/15/20 Unknown Rx 5/325] Nitrofurantoin Ponce/M-Cryst 100 mg PO Q12HR 7 Days #14 capsule 10/31/20 Unknown Rx [Macrobid CAP] Allergies Allergy/AdvReac Type Severity Reaction Status Date / Time No Known Allergies Allergy Verified 05/09/17 10:48 ED Review of Systems ROS: Stated complaint: NAUSEA/HEADACHE/BODY ACHES Other details as noted in HPI Comment: All other systems reviewed and negative ED Past Medical Hx - Past Medical History Previous Medical History?: Yes Hx Hypertension: No Hx Heart Attack/AMI: No Hx Congestive Heart Failure: No Hx Diabetes: No Hx Deep Vein Thrombosis: No Hx Liver Disease: No Hx Renal Disease: No Hx Sickle Cell Disease: No Hx Seizures: No Hx Asthma: Yes (over 9 months) Hx COPD: No Hx HIV: No Additional medical history: 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 ANEMIA - Surgical History Past Surgical History?: No Hx Pacemaker: No Hx Internal Defibrillator: No - Social History Smoking Status: Never Smoker Substance Use Type: None - Medications Home Medications: Home Medications Medication Instructions Recorded Confirmed Last Taken Type Albuterol Sulfate [Ventolin HFA] 2 puff IH Q4H PRN #1 hfa.aer.ad 08/01/15 03/12/20 Unknown Rx Ibuprofen [Motrin] 600 mg PO Q8H PRN #60 tablet 03/15/20 Unknown Rx oxyCODONE /ACETAMINOPHEN [Percocet 1 tab PO Q6HR PRN #20 tablet 03/15/20 Unknown Rx 5/325] Nitrofurantoin Ponce/M-Cryst 100 mg PO Q12HR 7 Days #14 capsule 10/31/20 Unknown Rx [Macrobid CAP] ED Physical Exam - General Limitations: No Limitations General appearance: alert, in no apparent distress - Head Head exam: Present: atraumatic, normocephalic - Eye Eye exam: Present: normal appearance - ENT ENT exam: Present: normal exam, normal external ear exam - Neck Neck exam: Present: normal inspection - Respiratory Respiratory exam: Present: normal lung sounds bilaterally. Absent: respiratory distress - Cardiovascular Cardiovascular Exam: Present: regular rate, normal rhythm. Absent: systolic murmur, diastolic murmur, rubs, gallop - Extremities Exam Extremities exam: Present: normal inspection, full ROM - Back Exam Back exam: Present: normal inspection - Neurological Exam Neurological exam: Present: alert, oriented X3, normal gait - Psychiatric Psychiatric exam: Present: normal affect, normal mood - Skin Skin exam: Present: warm, dry, intact, normal color. Absent: rash ED Course Vital Signs 10/31/20 14:24 Temperature 98.9 F Pulse Rate 94 H Respiratory 18 Rate Blood Pressure 135/81 O2 Sat by Pulse 98 Oximetry ED Medical Decision Making - Lab Data Result diagrams: 10/31/20 16:08 10/31/20 16:08 - Medical Decision Making 25-year-old morbid obese -[place] female presents to the emergency room complaining of nausea vomiting headache body aches since Tuesday. Patient states she last took ibuprofen was 3 AM this morning. She has not tested for Covid. She is not had any contact that she feels. She did is followed by [facility] in [place]. She has a past medical history of asthma with no flareup. She currently takes no medications on a daily basis. Her last menstrual period was last week. She reports that she has had a fever. Critical care attestation.: If time is entered above; I have spent that time in minutes in the direct care of this critically ill patient, excluding procedure time. ED Disposition Clinical Impression: Viral syndrome, Severely overweight UTI (urinary tract infection) Qualifiers: Urinary tract infection type: site unspecified Hematuria presence: without hematuria Qualified Code(s): N39.0 - Urinary tract infection, site not specified Disposition: - TO HOME OR SELFCARE Is pt being admited?: No Does the pt Need Aspirin: No Condition: Stable Instructions: Urinary Tract Infection, Adult, [id number] Additional Instructions: Your symptoms appear most consistent with a nonspecific viral syndrome. However, given this current pandemic, COVID-19 is in the differential of possibilities. Despite your previous negative COVID-19 test, I do recommend repeat outpatient Covid 19 testing. In the meantime, isolate/quarantine yourself and stay away from anyone who is elderly, immunocompromised or chronically ill. You can use ibuprofen every 6-8 hours and Tylenol every 4-8 hours, using the dosing on the back of the bottle, as needed for any fever or body aches. Return to the emergency department with any worsening of your symptoms, development of chest pain or shortness of breath, or with any acute distress. Your urine appears to have a small slight urinary tract infection. I will treat you with antibiotics. Increase your fluid intake void after intercourse. Follow-up with your primary care provider. Prescriptions: Nitrofurantoin Ponce/M-Cryst [Macrobid CAP] 100 mg PO Q12HR 7 Days #14 capsule Referrals: PRIMARY CARE [Primary Care Provider] - 3-5 Days [facility] [Provider Group] - 3-5 Days Forms: Work/School Release Form(ED)
== END 2020-10-31 18:50 | disposition home or self-care (01) ==
LOC: ED 13:23
DX: N39.0 Urinary tract infection, site not specified (principal); B34.9 Viral infection, unspecified; E66.3 Overweight; J45.909 Unspecified asthma, uncomplicated; Z68.43 Body mass index [BMI] 50.0-59.9, adult; Z79.1 Long term (current) use of non-steroidal anti-inflammatories (NSAID); Z79.899 Other long term (current) drug therapy
CPT/HCPCS: 36415; 80053; 81001; 83690; 84703; 85025; 87086